=== PATIENT | female | born 1970 | race Caucasian/White ===

== ENCOUNTER 2016-06-10 16:16 | Emergency (ER) | payer OTHER ==
--- NOTE | 2016-06-10 17:04 | DIAGNOSTIC IMAGING REPORT ---
PROCEDURE: XR CHEST 1 VIEW INDICATION: CHEST PAIN TECHNIQUE: Portable AP view 04:44 p.m. COMPARISON: None. FINDINGS: Lungs are clear. Heart and mediastinum are normal. Thorax is normal. IMPRESSION: 1. Negative chest.
--- NOTE | 2016-06-10 18:19 | ED ORDER SUMMARY ---
..... Patient: KAMINI SUAREZ OrderSheet [facility] VisitID: [id number] [place] [address] 45y, F Registration Date/Time: 06/10/2016 ORDER SHEET Weight: 70.3 kg (stated) Allergies: Compazine GENERAL ORDERS: EKG - ER Stat (16:37 06/10/2016 SBalde R.N. per protocol) (Ack 16:47 LNations ER Tech1) (16:52 Libia R.N.) Chest 1V Urgent (16:38 06/10/2016 Melania CANTRELL) (Ack 16:48 LNations ER Tech1) (16:52 Libia R.N.) Alarm Security Or Surveillance Monitor (Continuous) (16:39 06/10/2016 Melania CANTRELL) (Ack 16:47 LNations ER Tech1) (16:51 Libia R.N.) CBC w Diff Urgent (16:39 06/10/2016 Melania CANTRELL) (Ack 16:47 LNations ER Tech1) (17:33 SBalde R.N.) CMP Urgent (16:39 06/10/2016 Melania CANTRELL) (Ack 16:47 LNations ER Tech1) (17:33 SBalde R.N.) UA-Culture if indicated Urgent (16:39 06/10/2016 Melania CANTRELL) (Ack 16:47 LNations ER Tech1) PT with INR Urgent (16:39 06/10/2016 Melania CANTRELL) (Ack 16:47 LNations ER Tech1) (17:33 SBalde R.N.) PTT Urgent (16:39 06/10/2016 Melania CANTRELL) (Ack 16:47 LNations ER Tech1) (17:33 SBalde R.N.) D-Dimer Urgent (16:39 06/10/2016 Melania CANTRELL) (Ack 16:47 LNations ER Tech1) (17:33 SBalde R.N.) Amylase Urgent (16:39 06/10/2016 Melania CANTRELL) (Ack 16:48 LNations ER Tech1) (17:33 SBalde R.N.) Lipase Urgent (16:39 06/10/2016 Melania CANTRELL) (Ack 16:48 LNations ER Tech1) (17:33 SBalde R.N.) CPK Urgent (16:39 06/10/2016 Melania CANTRELL) (Ack 16:48 LNations ER Tech1) (17:33 SBalde R.N.) Troponin-I Urgent (16:39 06/10/2016 Melania CANTRELL) (Ack 16:48 LNations ER Tech1) (17:34 SBalde R.N.) Urine Urgent (16:39 06/10/2016 Melania CANTRELL) (Ack 16:48 LNations ER Tech1) BNP Urgent (16:39 06/10/2016 Melania CANTRELL) (Ack 16:48 LNations ER Tech1) (17:34 SBalde R.N.) Oxygen (2 L/min) (NC) (16:39 06/10/2016 Melania CANTRELL) (Ack 16:47 LNations ER Tech1) Pulse oximeter (16:39 06/10/2016 Melania CANTRELL) (Ack 16:47 LNations ER Tech1) (16:51 Libia R.N.) EKG - ER Stat (16:39 06/10/2016 Melania CANTRELL) (Ack 16:47 LNations ER Tech1) (17:33 SBalde R.N.) MEDICATION ORDERS: Aspirin PO 325 mg (NOW) (16:39 06/10/2016 Melania CANTRELL) (Ack 16:51 Libia R.N.) (16:55 Libia R.N.) IV FLUIDS: IV Saline Lock (16:39 06/10/2016 Melania CANTRELL) (17:34 Jewel R.N.) ORDER SHEET NOTES: [Electronically signed by Nimo Perales R.N. (18:48 06/10/2016)] [Electronically signed by Sedrick Sheppard MD (19:21 06/10/2016)] [Electronically locked/signed by Nimo Perales R.N. (18:48 06/10/2016)]
--- NOTE | 2016-06-10 18:19 | ED ORDER SUMMARY ---
..... Patient: KAMINI SUAREZ OrderSheet [facility] VisitID: [id number] [place] [address] 45y, F Registration Date/Time: 06/10/2016 ORDER SHEET Weight: 70.3 kg (stated) Allergies: Compazine GENERAL ORDERS: EKG - ER Stat (16:37 06/10/2016 SBalde R.N. per protocol) (Ack 16:47 LNations ER Tech1) (16:52 Libia R.N.) Chest 1V Urgent (16:38 06/10/2016 Melania CANTRELL) (Ack 16:48 LNations ER Tech1) (16:52 Libia R.N.) Patient Scheduler (Continuous) (16:39 06/10/2016 Melania CANTRELL) (Ack 16:47 LNations ER Tech1) (16:51 Libia R.N.) CBC w Diff Urgent (16:39 06/10/2016 Melania CANTRELL) (Ack 16:47 LNations ER Tech1) (17:33 SBalde R.N.) CMP Urgent (16:39 06/10/2016 Melania CANTRELL) (Ack 16:47 LNations ER Tech1) (17:33 SBalde R.N.) UA-Culture if indicated Urgent (16:39 06/10/2016 Melania CANTRELL) (Ack 16:47 LNations ER Tech1) PT with INR Urgent (16:39 06/10/2016 Melania CANTRELL) (Ack 16:47 LNations ER Tech1) (17:33 SBalde R.N.) PTT Urgent (16:39 06/10/2016 Melania CANTRELL) (Ack 16:47 LNations ER Tech1) (17:33 SBalde R.N.) D-Dimer Urgent (16:39 06/10/2016 Melania CANTRELL) (Ack 16:47 LNations ER Tech1) (17:33 SBalde R.N.) Amylase Urgent (16:39 06/10/2016 Melania CANTRELL) (Ack 16:48 LNations ER Tech1) (17:33 SBalde R.N.) Lipase Urgent (16:39 06/10/2016 Melania CANTRELL) (Ack 16:48 LNations ER Tech1) (17:33 SBalde R.N.) CPK Urgent (16:39 06/10/2016 Melania CANTRELL) (Ack 16:48 LNations ER Tech1) (17:33 SBalde R.N.) Troponin-I Urgent (16:39 06/10/2016 Melania CANTRELL) (Ack 16:48 LNations ER Tech1) (17:34 SBalde R.N.) Urine Urgent (16:39 06/10/2016 Melania CANTRELL) (Ack 16:48 LNations ER Tech1) BNP Urgent (16:39 06/10/2016 Melania CANTRELL) (Ack 16:48 LNations ER Tech1) (17:34 SBalde R.N.) Oxygen (2 L/min) (NC) (16:39 06/10/2016 Melania CANTRELL) (Ack 16:47 LNations ER Tech1) Pulse oximeter (16:39 06/10/2016 Melania CANTRELL) (Ack 16:47 LNations ER Tech1) (16:51 Libia R.N.) EKG - ER Stat (16:39 06/10/2016 Melania CANTRELL) (Ack 16:47 LNations ER Tech1) (17:33 SBalde R.N.) MEDICATION ORDERS: Aspirin PO 325 mg (NOW) (16:39 06/10/2016 Melania CANTRELL) (Ack 16:51 Libia R.N.) (16:55 Libia R.N.) IV FLUIDS: IV Saline Lock (16:39 06/10/2016 Melania CANTRELL) (17:34 Jewel R.N.) ORDER SHEET NOTES: [Electronically signed by Nimo Perales R.N. (18:48 06/10/2016)] [Electronically signed by Sedrick Sheppard MD (19:21 06/10/2016)] [Electronically locked/signed by Nimo Perales R.N. (18:48 06/10/2016)]
--- NOTE | 2016-06-10 18:19 | ED NURSING NOTES ---
Clinical Report - Nurses [facility] [address] [place] [address] 06/10/2016 16:18 [id number] Triage time 16:23. Acuity: LEVEL 4. Chief Complaint: CHEST PAIN. Alert. KRISTEN COMA SCORE: Leblanc Coma Scale: 15- eyes open spontaneously (4); best verbal response- oriented x 4 (5); best motor response- obeys commands (6). --16:32 Rabia Carrillo R.N. 16:23 06/10/16. BP: 122/82. HR: 109. RR: 18. O2 saturation: 99% on room air. Temp: 98.1 F (oral). Pain level now: 8/10. --16:32 Rabia Carrillo R.N. Weight: 70.3 kg stated. Height/Length: 63 inches Per Patient. BMI: 27.5. --16:30 Rabia Carrillo R.N. Medications Orencia Subcutaneous. --16:27 Rabia Carrillo R.N. PredniSONE Oral 5 mg, daily. --16:27 Rabia Carrillo R.N. Amitriptyline HCl Oral 25 mg. --16:27 Rabia Carrillo R.N. Medication/allergy information source: the patient. --16:32 Rabia Carrillo R.N. Allergies Compazine. --16:28 Rabia Carrillo R.N. History Arrived by private vehicle. Historian: patient. Accompanied by family. Primary physician ([facility]). Onset. (about 3 days). Describes the quality as (constant "jade"). Relates location as in the right and left chest area. Notes pain level as 8/10 on arrival. Provoking / relieving factors: worsened by movement, cough and deep breaths. ( lower bilateral lower "ribs"). The patient has had a cough. SOCIAL HX: Heavy tobacco smoker- less than 1 pack per day. No alcohol use or drug use. FALL RISK ASSESSMENT: Fall risk assessment completed. No fall risk identified. FUNCTIONAL ASSESSMENT: Functional assessment: no impairments noted. LEARNING NEEDS ASSESSMENT: The learning needs assessment revealed no barriers. --16:32 Rabia Carrillo R.N. PROBLEMS: Fibromyalgia. Arthritis. --16:29 Rabia Carrillo R.N. ADDITIONAL SURGERIES: Hysterectomy. Oophorectomy. --16:29 Rabia Carrillo R.N. Assessment GENERAL / NEURO / PSYCH: The patient is awake and alert, is oriented and cooperative and appears uncomfortable. She has good eye contact. RESPIRATORY: Respirations not labored. SKIN: Skin is warm and dry. --16:32 Rabia Carrillo R.N. Interventions ID band on patient. To treatment room. --16:32 Rabia Carrillo R.N. PHYSICAL ASSESSMENT 16:38 06/10/16. Ambulatory to room. Patient gowned. GENERAL / NEURO / PSYCH: The patient is awake and alert, is oriented and cooperative and appears uncomfortable. She has good eye contact. RESPIRATORY: Respirations not labored. SKIN: Skin is warm and dry. --16:38 Rabia Carrillo R.N. NURSING PROGRESS NOTES 16:38 06/10/16. Patient gowned. Call light placed in reach. Side rails up x 1. Bed placed in lowest position. Brakes of bed on. --16:38 Rabia Carrillo R.N. 16:55 06/10/2016 Aspirin PO Tablets 325 mg given. Allergies verified and confirmed 5 rights. --16:55 Rabia Carrillo R.N. 16:55 06/10/16. shelter monitor, pulse oximeter and NIBP monitor placed on patient. Head of bed elevated. --16:55 Rabia Carrillo R.N. Portable chest x-ray. --16:55 Rabia Carrillo R.N. 17:06 06/10/2016 One (1) unsuccessful IV access attempt. --17:06 Rabia Carrillo R.N. EKG time: (16:50). EKG was performed by a tech and shown to the ED physician. --17:13 Neo Mcghee 17:24 06/10/2016 Site #1 started via IV in the right antecubital space with an 20g angiocath; one attempt. Blood drawn: rainbow set. Labeled in the presence of the patient. Saline lock flushed with 10 mL saline. --17:26 Nimo Perales R.N. Call light placed in reach. Side rails up x 2. Bed placed in lowest position. Brakes of bed on. --17:26 Nimo Perales R.N. 18:34 06/10/2016 Site #1 removed upon discharge. Bandage applied. --18:34 Nimo Perales R.N. DISPOSITION / DISCHARGE Departure time: 18:34 Jun 10 2016. Condition at departure: improved and stable. No learning barriers present. Reviewed medication(s). Work note given. Patient verbalized understanding. Written instructions provided in Welsh. The patient was discharged by the physician. She was discharged home and accompanied by family. She left the Emergency Department ambulatory and via private vehicle. Family member driving. --18:35 Nimo Perales R.N. 18:36 06/10/16. BP: 101/65. HR: 90. RR: 18. O2 saturation: 97%. Pain level now 6/10. --18:37 Nimo Perales R.N. Locked/Released at 06/10/2016 18:48 by Nimo Perales R.N.
--- NOTE | 2016-06-10 18:19 | ED NURSING NOTES ---
Clinical Report - Nurses [facility] [address] [place] [address] 06/10/2016 16:18 [id number] TRI[facility] Triage time 16:23. Acuity: LEVEL 4. Chief Complaint: CHEST PAIN. Alert. KRISTEN COMA SCORE: Hoyt Coma Scale: 15- eyes open spontaneously (4); best verbal response- oriented x 4 (5); best motor response- obeys commands (6). --16:32 Rabia Carrillo R.N. 16:23 06/10/16. BP: 122/82. HR: 109. RR: 18. O2 saturation: 99% on room air. Temp: 98.1 F (oral). Pain level now: 8/10. --16:32 Rabia Carrillo R.N. Weight: 70.3 kg stated. Height/Length: 63 inches Per Patient. BMI: 27.5. --16:30 Rabia Carrillo R.N. Medications Orencia Subcutaneous. --16:27 Rabia Carrillo R.N. PredniSONE Oral 5 mg, daily. --16:27 Rabia Carrillo R.N. Amitriptyline HCl Oral 25 mg. --16:27 Rabia Carrillo R.N. Medication/allergy information source: the patient. --16:32 Rabia Carrillo R.N. Allergies Compazine. --16:28 Rabia Carrillo R.N. History Arrived by private vehicle. Historian: patient. Accompanied by family. Primary physician ([facility]). Onset. (about 3 days). Describes the quality as (constant "jade"). Relates location as in the right and left chest area. Notes pain level as 8/10 on arrival. Provoking / relieving factors: worsened by movement, cough and deep breaths. ( lower bilateral lower "ribs"). The patient has had a cough. SOCIAL HX: Heavy tobacco smoker- less than 1 pack per day. No alcohol use or drug use. FALL RISK ASSESSMENT: Fall risk assessment completed. No fall risk identified. FUNCTIONAL ASSESSMENT: Functional assessment: no impairments noted. LEARNING NEEDS ASSESSMENT: The learning needs assessment revealed no barriers. --16:32 Rabia Carrillo R.N. PROBLEMS: Fibromyalgia. Arthritis. --16:29 Rabia Carrillo R.N. ADDITIONAL SURGERIES: Hysterectomy. Oophorectomy. --16:29 Rabia Carrillo R.N. Assessment GENERAL / NEURO / PSYCH: The patient is awake and alert, is oriented and cooperative and appears uncomfortable. She has good eye contact. RESPIRATORY: Respirations not labored. SKIN: Skin is warm and dry. --16:32 Rabia Carrillo R.N. Interventions ID band on patient. To treatment room. --16:32 Rabia Carrillo R.N. PHYSICAL ASSESSMENT 16:38 06/10/16. Ambulatory to room. Patient gowned. GENERAL / NEURO / PSYCH: The patient is awake and alert, is oriented and cooperative and appears uncomfortable. She has good eye contact. RESPIRATORY: Respirations not labored. SKIN: Skin is warm and dry. --16:38 Rabia Carrillo R.N. NURSING PROGRESS NOTES 16:38 06/10/16. Patient gowned. Call light placed in reach. Side rails up x 1. Bed placed in lowest position. Brakes of bed on. --16:38 Rabia Carrillo R.N. 16:55 06/10/2016 Aspirin PO Tablets 325 mg given. Allergies verified and confirmed 5 rights. --16:55 Rabia Carrillo R.N. 16:55 06/10/16. school bus monitor, pulse oximeter and NIBP monitor placed on patient. Head of bed elevated. --16:55 Rabia Carrillo R.N. Portable chest x-ray. --16:55 Rabia Carrillo R.N. 17:06 06/10/2016 One (1) unsuccessful IV access attempt. --17:06 Rabia Carrillo R.N. EKG time: (16:50). EKG was performed by a tech and shown to the ED physician. --17:13 Neo Mcghee 17:24 06/10/2016 Site #1 started via IV in the right antecubital space with an 20g angiocath; one attempt. Blood drawn: rainbow set. Labeled in the presence of the patient. Saline lock flushed with 10 mL saline. --17:26 Nimo Perales R.N. Call light placed in reach. Side rails up x 2. Bed placed in lowest position. Brakes of bed on. --17:26 Nimo Perales R.N. 18:34 06/10/2016 Site #1 removed upon discharge. Bandage applied. --18:34 Nimo Perales R.N. DISPOSITION / DISCHARGE Departure time: 18:34 Jun 10 2016. Condition at departure: improved and stable. No learning barriers present. Reviewed medication(s). Work note given. Patient verbalized understanding. Written instructions provided in Faroese. The patient was discharged by the physician. She was discharged home and accompanied by family. She left the Emergency Department ambulatory and via private vehicle. Family member driving. --18:35 Nimo Perales R.N. 18:36 06/10/16. BP: 101/65. HR: 90. RR: 18. O2 saturation: 97%. Pain level now 6/10. --18:37 Nimo Perales R.N. Locked/Released at 06/10/2016 18:48 by Nimo Perales R.N.
--- NOTE | 2016-06-10 18:19 | ED CLINICAL REPORT ---
Clinical Report - Physicians/Mid Levels [facility] [address] [place] [address] 06/10/2016 16:18 Patient: KAMINI SUAREZ Time Seen: 16:38. Arrived- By private vehicle. Historian- patient. HISTORY OF PRESENT ILLNESS Chief Complaint: CHEST PAIN. At its maximum, severity described as moderate. When seen in the E.D., severity described as moderate. It is described as tightness and it is described as located in the RUQ of the abdomen and left upper quadrant of the abdomen. This started several days ago and is still present. It was gradual in onset and has been waxing/waning. No nausea, vomiting, difficulty breathing or diaphoresis. The patient has had additional moderate, central, burning chest pain. It has been exacerbated by movement, exertion and cough. Similar symptoms previously: REVIEW OF SYSTEMS All systems otherwise negative, except as recorded above. PAST HISTORY PCP - Jey. Problems: Fibromyalgia. Arthritis. Additional Surgeries: Hysterectomy. Oophorectomy. Medications: Amitriptyline HCl Oral 25 mg. PredniSONE Oral 5 mg, daily. Orencia Subcutaneous. Allergies: Compazine. SOCIAL HISTORY Current every day light tobacco smoker (cigarette)- less than 1/2 a pack per day. No alcohol use or drug use. FAMILY HISTORY Stroke in first-degree relative (father); cancer in grandparent. ADDITIONAL NOTES The nursing notes have been reviewed. PHYSICAL EXAM Vital Signs: 06/10/2016 16:23 BP: 122/82. HR: 109. RR: 18. O2 saturation: 99%. Temp: 98.1 F. Pain level now: 8/10. Have been reviewed. Appearance: Alert. Eyes: Pupils equal, round and reactive to light. ENT: Ears normal. Pharynx normal. Neck: Normal inspection. Neck supple. No JVD or carotid bruit. CVS: Normal heart rate and rhythm. Heart sounds normal. Respiratory: No respiratory distress. Chest pain reproducible with palpation of the costochondral junction, with movement of the trunk and with deep breathing. Breath sounds normal. Abdomen: Soft and nontender. Bowel sounds normal. No organomegaly. No mass. Back: Normal external inspection. No CVA tenderness. Skin: Skin warm and dry. Normal skin color. Normal skin turgor. Extremities: Extremities exhibit normal ROM. No calf tenderness. No lower extremity edema. LABS, X-RAYS, AND EKG EKG: Normal EKG. Rate: 96. Prior EKG unavailable. The study has been independently viewed by me. Chest X-ray: No acute disease. The X-rays were interpreted by the radiologist and contemporaneously by me. Laboratory Tests: CBC w Diff: (JESSICA: 06/10/2016 17:15) ( MsgRcvd 06/10/2016 17:34) Final results Test Result Flag Units (Reference) WHITE BLOOD COUNT 11.1 K/uL (4.5-11.5) RED BLOOD COUNT 4.90 M/uL (4.00-5.20) HEMOGLOBIN 13.5 gm/dL (12.0-16.0) HEMATOCRIT 41.7 % (36.0-46.0) MEAN CELL VOLUME 85 fL (80-100) MEAN CORPUSCULAR HGB 28 pg (26-34) MEAN CORPUSCULAR HGB CONC 33 g/dL (31-37) RED CELL DISTRIBUTION WIDTH 14.1 % (11.6-14.8) PLATELET COUNT 422 H K/uL (150-400) NEUTROPHIL % 72.2 % (50-75) LYMPH % 22.1 L % (25-40) MONO % 4.6 % (3-14) EOSINOPHIL % 0.7 % (0-4) BASOPHIL % 0.4 % (0-2) PT with INR: (JESSICA: 06/10/2016 17:15) ( MsgRcvd 06/10/2016 17:51) Final results Test Result Flag Units (Reference) INR 0.9 (0.8-1.2) Low Intensity Therapy: INR 1.5-2.0 PT range 18.5-23.1Mod.Intensity Therapy: INR 2.0-3.0 PT range 23.1-31.5High Intensity Therapy: INR 2.5-3.5 PT range 27.4-35.5High Intensity Therapy 2: INR 3.0-4.0 PT range 31.5-39.3 APTT 29 SECONDS (24-34) D-DIMER QUANTITATIVE < 0.27 L ug/mLFEU (0.27-0.52) The primary value of this quantitative assay relates toits negative predictive value (i.e. exclusion) of pulmonaryembolism/deep vein thrombosis/DIC.Elevated levels of d-dimer may also occur with:, age, cancer, inflammation, liver disease,post-op, infection, hematoma, coronary disease, peripheralarteriopathy, bleeding disorders and thrombolytic treatment.Results should be correlated with other clinical andradiological data.Testing Methodology: Latex Immunoassay BNP: (JESSICA: 06/10/2016 17:15) ( MsgRcvd 06/10/2016 17:58) Final results Test Result Flag Units (Reference) B-TYPE NATRIURETIC PEPTIDE < 5.0 L pg/ml (5-100) CMP: (JESSICA: 06/10/2016 17:15) ( MsgRcvd 06/10/2016 17:54) Final results Test Result Flag Units (Reference) GLUCOSE 147 H mg/dL (70-110) BUN 9 mg/dL (7-18) CREATININE 0.8 mg/dL (0.6-1.3) Estimated GFR >60 mL/min Estimated GFR- >60 mL/min Note: Persistent reduction over 3 months in eGFR<60 mL/min/1.73 m2 defines CKD. Patients with eGFR values>=60 mL/min/1.73 m2 may also have CKD if evidence ofpersistent proteinuria. Additional information may be foundat www.kidney.org. SODIUM 146 H mmol/L (136-145) POTASSIUM 3.6 mmol/L (3.5-5.1) CHLORIDE 108 H mmol/L (98-107) CARBON DIOXIDE 26 mmol/L (21-32) CALCIUM 8.7 mg/dL (8.5-10.1) TOTAL PROTEIN 7.5 g/dL (6.4-8.2) ALBUMIN 3.7 g/dL (3.3-5.0) BILIRUBIN, TOTAL 0.4 mg/dL (0.0-1.0) ALKALINE PHOSPHATASE 90 U/L (46-116) AST (SGOT) 18 U/L (15-37) ALT (SGPT) 33 U/L (12-78) LIPASE 223 U/L (73-393) AMYLASE 30 U/L (25-115) CPK 54 U/L (24-260) TROPONIN I <0.05 L ng/mL (0.00-1.5) TROPONIN REFERENCE RANGE:<0.1 NEGATIVE0.1-1.5 INDETERMINANT>1.5 POSITIVE . PROGRESS AND PROCEDURES Course of Care: Patient is stable. Patient/family counseled. Old medical records reviewed. Disposition: Discharged. Condition: stable. CLINICAL IMPRESSION Chest wall pain INSTRUCTIONS No driving or operating machinery while taking medication. Warnings: Further evaluation is necessary. GENERAL WARNINGS: Return or contact your physician immediately if your condition worsens or changes unexpectedly, if not improving as expected, or if other problems arise. Your Current Medications: CONTINUE TAKING THE FOLLOWING MEDICATIONS: Amitriptyline HCl Oral : 25 mg. Orencia Subcutaneous. PredniSONE Oral : 5 mg daily. Prescription Medications: Ultram 50 mg: take 1-2 orally every 6 hours as needed for pain. Dispense fifteen (15). No refills. Substitution is permissible. OTC Medications: Motrin (available over the counter): take according to label instructions. Understanding of the discharge instructions verbalized by patient. Follow-up with: [facility], , , [address], [place] [address] Follow up tomorrow. Call for an appointment. (Electronically signed by Sedrick Sheppard MD 06/10/2016 19:21)
--- NOTE | 2016-06-10 19:21 | ED DISCHARGE INSTRUCTIONS ---
Patient: KAMINI SUAREZ General Instructions [facility] VisitID: [id number] [place] [address] 45y, F Registration Date/Time: 06/10/2016 Chest wall pain INSTRUCTIONS No driving or operating machinery while taking medication. Warnings: Further evaluation is necessary. GENERAL WARNINGS: Return or contact your physician immediately if your condition worsens or changes unexpectedly, if not improving as expected, or if other problems arise. Your Current Medications: CONTINUE TAKING THE FOLLOWING MEDICATIONS: Amitriptyline HCl Oral : 25 mg. Orencia Subcutaneous. PredniSONE Oral : 5 mg daily. Prescription Medications: Ultram 50 mg: take 1-2 orally every 6 hours as needed for pain. Dispense fifteen (15). No refills. Substitution is permissible. OTC Medications: Motrin (available over the counter): take according to label instructions. Understanding of the discharge instructions verbalized by patient. Follow-up with: [facility], , , [address] [place] [address], [place] [id number] Follow up tomorrow. Call for an appointment. ADDITIONAL INFORMATION Chest Wall Pain: Costochondritis The chest pain that you have had today is caused by Costochondritis. This condition is due to an inflammation of the cartilage joining the ribs to the breastbone. It is not caused by heart or lung problems. Although the exact cause for costochondritis is not known, it often occurs during times of emotional stress. It can be painful, but it is not dangerous. It usually disappears within one to two weeks, but may recur. Rarely, a more serious condition may cause symptoms similar to costochondritis; therefore, watch for the warning signs listed below. Home Care: If you feel that emotional stress is a cause of your condition, try to identify sources of that stress. It may not be obvious! Learn ways to deal with the stress in your life such as regular exercise, muscle relaxation, meditation, or simply taking time out for yourself. For more information about this, consult your doctor or go to a local bookstore and review books and tapes available on the subject of stress reduction. You may use acetaminophen (Tylenol) or ibuprofen (Motrin, Advil) to control pain, unless another pain medicine was prescribed. [ NOTE: If you have liver disease or ever had a stomach ulcer, talk with your doctor before using these medicines.] The use of heat (hot wet compress or heating pad) with or without local analgesic creams (Deep Heat Rub, Noe Monzon) will be helpful to reduce pain. Follow Up with your doctor as directed or sooner if you do not start to improve within the next two days. Get Prompt Medical Attention if any of the following occur: A change in the type of pain: if it feels different, becomes more severe, lasts longer, or spreads into your shoulder, arm, neck, jaw or back Shortness of breath or increased pain with breathing Weakness, dizziness, or fainting Cough with dark colored sputum (phlegm) or blood Abdominal pain Dark red or black stools Fever of 100.4F (38C) or higher, or as directed by your healthcare provider Tramadol Hydrochloride Oral tablet What is this medicine? TRAMADOL (TRA ma dole) is a pain reliever. It is used to treat moderate to severe pain in adults. How should I use this medicine? Take this medicine by mouth with a full glass of water. Follow the directions on the prescription label. If the medicine upsets your stomach, take it with food or milk. Do not take more medicine than you are told to take. Talk to your tube bender hand regarding the use of this medicine in children. Special care may be needed. What side effects may I notice from receiving this medicine? Side effects that you should report to your doctor or health patient care secretary as soon as possible: allergic reactions like skin rash, itching or hives, swelling of the face, lips, or tongue breathing difficulties, wheezing confusion itching light headedness or fainting spells redness, blistering, peeling or loosening of the skin, including inside the mouth seizures Side effects that usually do not require medical attention (report to your doctor or health patient care secretary if they continue or are bothersome): constipation dizziness drowsiness headache nausea, vomiting What may interact with this medicine? Do not take this medicine with any of the following medications: MAOIs like Carbex, Eldepryl, Marplan, Nardil, and Parnate This medicine may also interact with the following medications: alcohol or medicines that contain alcohol antihistamines benzodiazepines bupropion carbamazepine or oxcarbazepine clozapine cyclobenzaprine digoxin furazolidone linezolid medicines for depression, anxiety, or psychotic disturbances medicines for migraine headache like almotriptan, eletriptan, frovatriptan, naratriptan, rizatriptan, sumatriptan, zolmitriptan medicines for pain like pentazocine, buprenorphine, butorphanol, meperidine, nalbuphine, and propoxyphene medicines for sleep muscle relaxants naltrexone phenobarbital phenothiazines like perphenazine, thioridazine, chlorpromazine, mesoridazine, fluphenazine, prochlorperazine, promazine, and trifluoperazine procarbazine warfarin What if I miss a dose? If you miss a dose, take it as soon as you can. If it is almost time for your next dose, take only that dose. Do not take double or extra doses. Where should I keep my medicine? Keep out of the reach of children. Store at room temperature between 15 and 30 degrees C (59 and 86 degrees F). Keep container tightly closed. Throw away any unused medicine after the expiration date. What should I tell my health care provider before I take this medicine? They need to know if you have any of these conditions: brain tumor depression drug abuse or addiction head injury if you frequently drink alcohol containing drinks kidney disease or trouble passing urine liver disease lung disease, asthma, or breathing problems seizures or epilepsy suicidal thoughts, plans, or attempt; a previous suicide attempt by you or a family member an unusual or allergic reaction to tramadol, codeine, other medicines, foods, dyes, or preservatives or trying to get breast-feeding What should I watch for while using this medicine? Tell your doctor or health patient care secretary if your pain does not go away, if it gets worse, or if you have new or a different type of pain. You may develop tolerance to the medicine. Tolerance means that you will need a higher dose of the medicine for pain relief. Tolerance is normal and is expected if you take this medicine for a long time. Do not suddenly stop taking your medicine because you may develop a severe reaction. Your body becomes used to the medicine. This does NOT mean you are addicted. Addiction is a behavior related to getting and using a drug for a non-medical reason. If you have pain, you have a medical reason to take pain medicine. Your doctor will tell you how much medicine to take. If your doctor wants you to stop the medicine, the dose will be slowly lowered over time to avoid any side effects. You may get drowsy or dizzy. Do not drive, use machinery, or do anything that needs mental alertness until you know how this medicine affects you. Do not stand or sit up quickly, especially if you are an older patient. This reduces the risk of dizzy or fainting spells. Alcohol can increase or decrease the effects of this medicine. Avoid alcoholic drinks. You may have constipation. Try to have a bowel movement at least every 2 to 3 days. If you do not have a bowel movement for 3 days, call your doctor or health patient care secretary. Your mouth may get dry. Chewing sugarless gum or sucking hard candy, and drinking plenty of water may help. Contact your doctor if the problem does not go away or is severe. Ibuprofen Oral tablet What is this medicine? IBUPROFEN (eye BYOO proe fen) is a non-steroidal anti-inflammatory drug (NSAID). It is used for dental pain, fever, headaches or migraines, osteoarthritis, rheumatoid arthritis, or painful monthly periods. It can also relieve minor aches and pains caused by a cold, flu, or sore throat. How should I use this medicine? Take this medicine by mouth with a glass of water. Follow the directions on the prescription label. Take this medicine with food if your stomach gets upset. Try to not lie down for at least 10 minutes after you take the medicine. Take your medicine at regular intervals. Do not take your medicine more often than directed. A special MedGuide will be given to you by the pharmacist with each prescription and refill. Be sure to read this information carefully each time. Talk to your tube bender hand regarding the use of this medicine in children. Special care may be needed. What side effects may I notice from receiving this medicine? Side effects that you should report to your doctor or health patient care secretary as soon as possible: allergic reactions like skin rash, itching or hives, swelling of the face, lips, or tongue black or bloody stools, blood in the urine or in vomit breathing problems changes in vision chest pain general ill feeling or flu-like symptoms nausea or vomiting redness, blistering, peeling or loosening of the skin, including inside the mouth slurred speech or weakness on one side of the body stomach pain unexplained weight gain or swelling unusually weak or tired yellowing of eyes or skin Side effects that usually do not require medical attention (report to your doctor or health patient care secretary if they continue or are bothersome): constipation or diarrhea dizziness gas or heartburn stomach upset What may interact with this medicine? Do not take this medicine with any of the following medications: cidofovir ketorolac methotrexate pemetrexed This medicine may also interact with the following medications: alcohol aspirin diuretics lithium other drugs for inflammation like prednisone warfarin What if I miss a dose? If you miss a dose, take it as soon as you can. If it is almost time for your next dose, take only that dose. Do not take double or extra doses. Where should I keep my medicine? Keep out of the reach of children. Store at room temperature between 15 and 30 degrees C (59 and 86 degrees F). Keep container tightly closed. Throw away any unused medicine after the expiration date. What should I tell my health care provider before I take this medicine? They need to know if you have any of these conditions: asthma cigarette smoker drink more than 3 alcohol containing drinks a day heart disease or circulation problems such as heart failure or leg edema (fluid retention) high blood pressure kidney disease liver disease stomach bleeding or ulcers an unusual or allergic reaction to ibuprofen, aspirin, other NSAIDS, other medicines, foods, dyes, or preservatives or trying to get breast-feeding What should I watch for while using this medicine? Tell your doctor or healthcare professional if your symptoms do not start to get better or if they get worse. This medicine does not prevent heart attack or stroke. In fact, this medicine may increase the chance of a heart attack or stroke. The chance may increase with longer use of this medicine and in people who have heart disease. If you take aspirin to prevent heart attack or stroke, talk with your doctor or health patient care secretary. Do not take other medicines that contain aspirin, ibuprofen, or naproxen with this medicine. Side effects such as stomach upset, nausea, or ulcers may be more likely to occur. Many medicines available without a prescription should not be taken with this medicine. This medicine can cause ulcers and bleeding in the stomach and intestines at any time during treatment. Ulcers and bleeding can happen without warning symptoms and can cause . To reduce your risk, do not smoke cigarettes or drink alcohol while you are taking this medicine. You may get drowsy or dizzy. Do not drive, use machinery, or do anything that needs mental alertness until you know how this medicine affects you. Do not stand or sit up quickly, especially if you are an older patient. This reduces the risk of dizzy or fainting spells. This medicine can cause you to bleed more easily. Try to avoid damage to your teeth and gums when you brush or floss your teeth. You have been given the following additional information: Chest Wall Pain, Costochondritis Tramadol Hydrochloride Oral tablet Ibuprofen Oral tablet No driving or operating machinery while taking medication. (Electronically signed by Sedrick Sheppard MD 06/10/2016 19:21)
--- NOTE | 2016-06-10 19:21 | ED MAR SUMMARY ---
..... Medication Administration Record [facility] [address] [place] [address] Patient: KAMINI SUAREZ Visit ID: [id number] 45y, F Weight: 70.3 kg Height/Length: 63 in BMI: 27.5 ALLERGIES: Compazine Given 16:55 06/10/2016 Rabia Carrillo R.N. Medication Administered: ASPIRIN [PO], Dose: 325 mg Tablets PO. Medication Ordered: Aspirin PO 325 mg (NOW).
--- NOTE | 2016-06-10 19:21 | ED MED RECONCILIATION SUMMARY ---
Patient: KAMINI SUAREZ Medication Reconciliation Report [facility] VisitID: [id number] [address] [place] [address] 45y, F Registration Date/Time: 06/10/2016 Weight: 70.3 kg Height/Length: 63 in. BMI: 27.5 ALLERGIES: Compazine The patient's Home Medications are listed below: CONTINUE TAKING THE FOLLOWING MEDICATIONS: Amitriptyline HCl Oral 25 mg Orencia Subcutaneous PredniSONE Oral 5 mg, daily The source(s) of the original Home Medication information: patient The following Medications were given to the patient in the Emergency Department: Aspirin [PO] PO 325 mg, administered: 06/10/2016 4:55:00 PM The following Medications were prescribed to the patient: Motrin (available over the counter): take according to label instructions. -- Sedrick Sheppard MD Ultram 50 mg: take 1-2 orally every 6 hours as needed for pain. Dispense fifteen (15). No refills. Substitution is permissible. -- Sedrick Sheppard MD
--- NOTE | 2016-06-10 19:21 | ED DISCHARGE INSTRUCTIONS ---
Patient: KAMINI SUAREZ General Instructions [facility] VisitID: [id number] [place] [address] 45y, F Registration Date/Time: 06/10/2016 Chest wall pain INSTRUCTIONS No driving or operating machinery while taking medication. Warnings: Further evaluation is necessary. GENERAL WARNINGS: Return or contact your physician immediately if your condition worsens or changes unexpectedly, if not improving as expected, or if other problems arise. Your Current Medications: CONTINUE TAKING THE FOLLOWING MEDICATIONS: Amitriptyline HCl Oral : 25 mg. Orencia Subcutaneous. PredniSONE Oral : 5 mg daily. Prescription Medications: Ultram 50 mg: take 1-2 orally every 6 hours as needed for pain. Dispense fifteen (15). No refills. Substitution is permissible. OTC Medications: Motrin (available over the counter): take according to label instructions. Understanding of the discharge instructions verbalized by patient. Follow-up with: [facility], , , [address] [place] [address], [place] [address] Follow up tomorrow. Call for an appointment. ADDITIONAL INFORMATION Chest Wall Pain: Costochondritis The chest pain that you have had today is caused by Costochondritis. This condition is due to an inflammation of the cartilage joining the ribs to the breastbone. It is not caused by heart or lung problems. Although the exact cause for costochondritis is not known, it often occurs during times of emotional stress. It can be painful, but it is not dangerous. It usually disappears within one to two weeks, but may recur. Rarely, a more serious condition may cause symptoms similar to costochondritis; therefore, watch for the warning signs listed below. Home Care: If you feel that emotional stress is a cause of your condition, try to identify sources of that stress. It may not be obvious! Learn ways to deal with the stress in your life such as regular exercise, muscle relaxation, meditation, or simply taking time out for yourself. For more information about this, consult your doctor or go to a local bookstore and review books and tapes available on the subject of stress reduction. You may use acetaminophen (Tylenol) or ibuprofen (Motrin, Advil) to control pain, unless another pain medicine was prescribed. [ NOTE: If you have liver disease or ever had a stomach ulcer, talk with your doctor before using these medicines.] The use of heat (hot wet compress or heating pad) with or without local analgesic creams (Deep Heat Rub, Noe Monzon) will be helpful to reduce pain. Follow Up with your doctor as directed or sooner if you do not start to improve within the next two days. Get Prompt Medical Attention if any of the following occur: A change in the type of pain: if it feels different, becomes more severe, lasts longer, or spreads into your shoulder, arm, neck, jaw or back Shortness of breath or increased pain with breathing Weakness, dizziness, or fainting Cough with dark colored sputum (phlegm) or blood Abdominal pain Dark red or black stools Fever of 100.4F (38C) or higher, or as directed by your healthcare provider Tramadol Hydrochloride Oral tablet What is this medicine? TRAMADOL (TRA ma dole) is a pain reliever. It is used to treat moderate to severe pain in adults. How should I use this medicine? Take this medicine by mouth with a full glass of water. Follow the directions on the prescription label. If the medicine upsets your stomach, take it with food or milk. Do not take more medicine than you are told to take. Talk to your fixing machine operator regarding the use of this medicine in children. Special care may be needed. What side effects may I notice from receiving this medicine? Side effects that you should report to your doctor or health overnight caregiver as soon as possible: allergic reactions like skin rash, itching or hives, swelling of the face, lips, or tongue breathing difficulties, wheezing confusion itching light headedness or fainting spells redness, blistering, peeling or loosening of the skin, including inside the mouth seizures Side effects that usually do not require medical attention (report to your doctor or health overnight caregiver if they continue or are bothersome): constipation dizziness drowsiness headache nausea, vomiting What may interact with this medicine? Do not take this medicine with any of the following medications: MAOIs like Carbex, Eldepryl, Marplan, Nardil, and Parnate This medicine may also interact with the following medications: alcohol or medicines that contain alcohol antihistamines benzodiazepines bupropion carbamazepine or oxcarbazepine clozapine cyclobenzaprine digoxin furazolidone linezolid medicines for depression, anxiety, or psychotic disturbances medicines for migraine headache like almotriptan, eletriptan, frovatriptan, naratriptan, rizatriptan, sumatriptan, zolmitriptan medicines for pain like pentazocine, buprenorphine, butorphanol, meperidine, nalbuphine, and propoxyphene medicines for sleep muscle relaxants naltrexone phenobarbital phenothiazines like perphenazine, thioridazine, chlorpromazine, mesoridazine, fluphenazine, prochlorperazine, promazine, and trifluoperazine procarbazine warfarin What if I miss a dose? If you miss a dose, take it as soon as you can. If it is almost time for your next dose, take only that dose. Do not take double or extra doses. Where should I keep my medicine? Keep out of the reach of children. Store at room temperature between 15 and 30 degrees C (59 and 86 degrees F). Keep container tightly closed. Throw away any unused medicine after the expiration date. What should I tell my health care provider before I take this medicine? They need to know if you have any of these conditions: brain tumor depression drug abuse or addiction head injury if you frequently drink alcohol containing drinks kidney disease or trouble passing urine liver disease lung disease, asthma, or breathing problems seizures or epilepsy suicidal thoughts, plans, or attempt; a previous suicide attempt by you or a family member an unusual or allergic reaction to tramadol, codeine, other medicines, foods, dyes, or preservatives or trying to get breast-feeding What should I watch for while using this medicine? Tell your doctor or health overnight caregiver if your pain does not go away, if it gets worse, or if you have new or a different type of pain. You may develop tolerance to the medicine. Tolerance means that you will need a higher dose of the medicine for pain relief. Tolerance is normal and is expected if you take this medicine for a long time. Do not suddenly stop taking your medicine because you may develop a severe reaction. Your body becomes used to the medicine. This does NOT mean you are addicted. Addiction is a behavior related to getting and using a drug for a non-medical reason. If you have pain, you have a medical reason to take pain medicine. Your doctor will tell you how much medicine to take. If your doctor wants you to stop the medicine, the dose will be slowly lowered over time to avoid any side effects. You may get drowsy or dizzy. Do not drive, use machinery, or do anything that needs mental alertness until you know how this medicine affects you. Do not stand or sit up quickly, especially if you are an older patient. This reduces the risk of dizzy or fainting spells. Alcohol can increase or decrease the effects of this medicine. Avoid alcoholic drinks. You may have constipation. Try to have a bowel movement at least every 2 to 3 days. If you do not have a bowel movement for 3 days, call your doctor or health overnight caregiver. Your mouth may get dry. Chewing sugarless gum or sucking hard candy, and drinking plenty of water may help. Contact your doctor if the problem does not go away or is severe. Ibuprofen Oral tablet What is this medicine? IBUPROFEN (eye BYOO proe fen) is a non-steroidal anti-inflammatory drug (NSAID). It is used for dental pain, fever, headaches or migraines, osteoarthritis, rheumatoid arthritis, or painful monthly periods. It can also relieve minor aches and pains caused by a cold, flu, or sore throat. How should I use this medicine? Take this medicine by mouth with a glass of water. Follow the directions on the prescription label. Take this medicine with food if your stomach gets upset. Try to not lie down for at least 10 minutes after you take the medicine. Take your medicine at regular intervals. Do not take your medicine more often than directed. A special MedGuide will be given to you by the pharmacist with each prescription and refill. Be sure to read this information carefully each time. Talk to your fixing machine operator regarding the use of this medicine in children. Special care may be needed. What side effects may I notice from receiving this medicine? Side effects that you should report to your doctor or health overnight caregiver as soon as possible: allergic reactions like skin rash, itching or hives, swelling of the face, lips, or tongue black or bloody stools, blood in the urine or in vomit breathing problems changes in vision chest pain general ill feeling or flu-like symptoms nausea or vomiting redness, blistering, peeling or loosening of the skin, including inside the mouth slurred speech or weakness on one side of the body stomach pain unexplained weight gain or swelling unusually weak or tired yellowing of eyes or skin Side effects that usually do not require medical attention (report to your doctor or health overnight caregiver if they continue or are bothersome): constipation or diarrhea dizziness gas or heartburn stomach upset What may interact with this medicine? Do not take this medicine with any of the following medications: cidofovir ketorolac methotrexate pemetrexed This medicine may also interact with the following medications: alcohol aspirin diuretics lithium other drugs for inflammation like prednisone warfarin What if I miss a dose? If you miss a dose, take it as soon as you can. If it is almost time for your next dose, take only that dose. Do not take double or extra doses. Where should I keep my medicine? Keep out of the reach of children. Store at room temperature between 15 and 30 degrees C (59 and 86 degrees F). Keep container tightly closed. Throw away any unused medicine after the expiration date. What should I tell my health care provider before I take this medicine? They need to know if you have any of these conditions: asthma cigarette smoker drink more than 3 alcohol containing drinks a day heart disease or circulation problems such as heart failure or leg edema (fluid retention) high blood pressure kidney disease liver disease stomach bleeding or ulcers an unusual or allergic reaction to ibuprofen, aspirin, other NSAIDS, other medicines, foods, dyes, or preservatives or trying to get breast-feeding What should I watch for while using this medicine? Tell your doctor or healthcare professional if your symptoms do not start to get better or if they get worse. This medicine does not prevent heart attack or stroke. In fact, this medicine may increase the chance of a heart attack or stroke. The chance may increase with longer use of this medicine and in people who have heart disease. If you take aspirin to prevent heart attack or stroke, talk with your doctor or health overnight caregiver. Do not take other medicines that contain aspirin, ibuprofen, or naproxen with this medicine. Side effects such as stomach upset, nausea, or ulcers may be more likely to occur. Many medicines available without a prescription should not be taken with this medicine. This medicine can cause ulcers and bleeding in the stomach and intestines at any time during treatment. Ulcers and bleeding can happen without warning symptoms and can cause . To reduce your risk, do not smoke cigarettes or drink alcohol while you are taking this medicine. You may get drowsy or dizzy. Do not drive, use machinery, or do anything that needs mental alertness until you know how this medicine affects you. Do not stand or sit up quickly, especially if you are an older patient. This reduces the risk of dizzy or fainting spells. This medicine can cause you to bleed more easily. Try to avoid damage to your teeth and gums when you brush or floss your teeth. You have been given the following additional information: Chest Wall Pain, Costochondritis Tramadol Hydrochloride Oral tablet Ibuprofen Oral tablet No driving or operating machinery while taking medication. (Electronically signed by Sedrick Sheppard MD 06/10/2016 19:21)
--- NOTE | 2016-06-10 19:21 | ED MED RECONCILIATION SUMMARY ---
Patient: KAMINI SUAREZ Medication Reconciliation Report [facility] VisitID: [id number] [address] [place] [address] 45y, F Registration Date/Time: 06/10/2016 Weight: 70.3 kg Height/Length: 63 in. BMI: 27.5 ALLERGIES: Compazine The patient's Home Medications are listed below: CONTINUE TAKING THE FOLLOWING MEDICATIONS: Amitriptyline HCl Oral 25 mg Orencia Subcutaneous PredniSONE Oral 5 mg, daily The source(s) of the original Home Medication information: patient The following Medications were given to the patient in the Emergency Department: Aspirin [PO] PO 325 mg, administered: 06/10/2016 4:55:00 PM The following Medications were prescribed to the patient: Motrin (available over the counter): take according to label instructions. -- Sedrick Sheppard MD Ultram 50 mg: take 1-2 orally every 6 hours as needed for pain. Dispense fifteen (15). No refills. Substitution is permissible. -- Sedrick Sheppard MD
--- NOTE | 2016-06-10 19:21 | ED MAR SUMMARY ---
..... Medication Administration Record [facility] [address] [place] [address] Patient: KAMINI SUAREZ Visit ID: [id number] 45y, F Weight: 70.3 kg Height/Length: 63 in BMI: 27.5 ALLERGIES: Compazine Given 16:55 06/10/2016 Rabia Carrillo R.N. Medication Administered: ASPIRIN [PO], Dose: 325 mg Tablets PO. Medication Ordered: Aspirin PO 325 mg (NOW).
== END 2016-06-10 18:40 | disposition home or self-care (01) ==
LOC: ED SRH 16:16
DX: R07.89 Other chest pain (principal); F17.210 Nicotine dependence, cigarettes, uncomplicated; Z88.8 Allergy status to other drugs, medicaments and biological substances
CPT/HCPCS: 90074; 90100; 90616; 91320; 91556; 92235; 92530; 92610; 94001; 94060; 95059

== ENCOUNTER 2016-08-11 20:44 | Emergency (ER) | payer OTHER ==
--- NOTE | 2016-08-11 22:00 | DIAGNOSTIC IMAGING REPORT ---
PROCEDURE: XR CHEST 2 VIEW INDICATION: SHORTNESS OF BREATH TECHNIQUE: Two views. COMPARISON: 06/10/2016 FINDINGS: The cardiomediastinal contour is stable, within normal limits. The central vasculature is not congested. The lungs are clear without focal consolidation, pleural effusion or pneumothorax. The visualized osseous structures are intact. IMPRESSION: 1. No evidence of acute cardiopulmonary disease. 2. Stable exam compared to prior study.
--- NOTE | 2016-08-11 22:18 | ED NURSING NOTES ---
Clinical Report - Nurses [facility] [address] [place] [address] 08/11/2016 20:44 [id number] Triage time 20:50 Aug 11 2016. Acuity: LEVEL 3. Chief Complaint: SHORTNESS OF BREATH and DIFFICULTY BREATHING and COUGH. SEPSIS SCREEN: Sepsis Screen: negative. Infection suspected/documented. Heart rate greater than 90. MAGNUS COMA SCORE: Magnus Coma Scale: 15- eyes open spontaneously (4); best verbal response- oriented x 4 (5); best motor response- obeys commands (6). --20:54 Shahida Stein 20:50 08/11/16. BP: 143/77. HR: 122. RR: 22. O2 saturation: 97% on room air. Temp: 98.9 F (oral). Pain level now: 10/12. --20:54 Shahida Stein. Weight: 72.5 kg stated. Height/Length: 63 inches Per Patient. BMI: 28.3. --20:53 Shahida Stein. Medications Orencia Subcutaneous. --20:51 Shahida Stein TiZANidine HCl Oral. --20:52 Shahida Stein Lorzone Oral. --20:52 Shahida Stein. Medication/allergy information source: the patient. --20:54 Shahida Stein. Allergies Compazine. --20:51 Shahida Stein. History Arrived by private vehicle. Historian: patient. Accompanied by family. Primary physician (Norma awan). Onset. (3 days). ( Patient reports that she has been sick with a non productive cough for three days. She reports that today she has not been able to stop coughing and that she began having difficulty breathing. She reports rib pain. She denies fever.). PAST MEDICAL HX: Immunizations: up-to-date. Last normal menstrual period- 12 years. SOCIAL HX: Light tobacco smoker (cigarette)- less than 1/2 a pack per day. No alcohol use or drug use. No infectious disease exposure. ABUSE ASSESSMENT: No report of abuse. FALL RISK ASSESSMENT: Fall risk assessment completed. No fall risk identified. NUTRITIONAL RISK ASSESSMENT: The nutritional risk assessment revealed no deficiencies. FUNCTIONAL ASSESSMENT: Functional assessment: no impairments noted. LEARNING NEEDS ASSESSMENT: The learning needs assessment revealed no barriers. SKIN INTEGRITY ASSESSMENT: Skin integrity risk assessment completed. No skin integrity risk identified. --20:54 Shahida Stein. PROBLEMS: Chest Wall Pain. Fibromyalgia. Arthritis. --20:52 Shahida Stein. ADDITIONAL SURGERIES: Hysterectomy. Oophorectomy. --20:52 Shahida Stein. Interventions ID band on patient. To treatment room. --20:54 Shahida Stein. PHYSICAL ASSESSMENT 20:55 08/11/16. Patient gowned. GENERAL / NEURO / PSYCH: Alert. Oriented X 4. Appears in no acute distress. HEENT: Mucous membranes are pink. RESPIRATORY: Mild respiratory distress. Respirations not labored. The patient can speak in full sentences. Breath sounds within normal limits. CVS: Cardiac rhythm: sinus tachycardia. SKIN: Skin is warm and dry. --20:55 Shahida Stein. NURSING PROGRESS NOTES Pulse oximeter and NIBP monitor placed on patient; monitor alarms on. Patient gowned. Warming measures: blanket applied. Reassurance given to the patient. Two patient identifiers checked. Call light placed in reach. Side rails up x 1. Bed placed in lowest position. Brakes of bed on. Patient ready for evaluation- chart flagged and ED physician notified. --20:56 Shahida Stein 21:17 08/11/2016 Prednisone PO Tablets 40 mg given. Allergies verified and confirmed 5 rights. --21:17 Shahida Stein 21:26 08/11/2016 Site #1 started via IV in the right antecubital space with an 20g angiocath, with aseptic technique and good blood return; one attempt. Blood drawn: rainbow set. Labeled in the presence of the patient and sent to the lab. Saline lock flushed with 10 mL saline. --21:31 Shahida Stein 21:31 08/11/2016 Started bag #1 1000 mL IV Fluids IV NS (Saline); at 1000 mL/hr over 1 hour(s) via site #1. Allergies verified and confirmed 5 rights. IV patency established. IV site checked: no pain, redness, or swelling. IV flushed thoroughly pre- and post-medication administration. --21:31 Shahida Stein Patient ID band checked for patient name and birthdate: patient confirmed. Blood samples drawn from the right antecubital space peripheral IV site by nurse ; labeled in presence of the patient and sent to lab: rainbow set. Line flushed with 10 mL normal saline post blood draw. --21:34 Shahida Stein 21:35 08/11/16. BP: 124/60. HR: 114. RR: 22. O2 saturation: 97% on room air. --21:36 Shahida Stein Patient transported to radiology by stretcher with tech. (:36 Aug 11 2016). --21:36 Shahida Stein Patient returned from radiology by stretcher with tech. (:39 Aug 11 2016). --21:39 Shahida Stein 22:39 08/11/2016 Site #1 removed upon discharge. Catheter intact. Bandaid applied. --22:44 Shahida Stein 22:44 08/11/2016 IV Fluids IV NS Discontinued: bag #1 completed upon discharge. Total amount infused: 1000 mL. IV patency established. IV site checked: no pain, redness, or swelling. IV flushed thoroughly. --22:44 Shahida Stein. DISPOSITION / DISCHARGE 22:44 08/11/16. Condition at departure: improved and stable. The goals identified in the patient's plan of care were met. No learning barriers present. Discharge instructions provided and reviewed with the patient. Reviewed warnings (Do not drive while on sedative medications). Reviewed medication(s) side effects, precautions, dosing and course information. Prescription(s) given to the patient. Reviewed need for increased fluid intake. Patient verbalized understanding. Written instructions provided in Mongolian. ( Follow up with your PCP in three days. Return if symptoms worsen. Take medications as directed and increase fluids to loosen secretions. Patient acknowledged discharge instructions and had no questions at this time.). The patient was discharged by the physician. She was discharged home and accompanied by family. She left the Emergency Department ambulatory and via private vehicle. Family member driving. FALL RISK ASSESSMENT: Fall risk assessment completed. No fall risk identified. --22:44 Shahida Stein 22:40 08/11/16. BP: 115/62. HR: 104. RR: 20. O2 saturation: 97% on room air. Temp: 98.9 F (oral). Pain level now: 10/12. --22:44 Shahida Stein. Locked/Released at 08/12/2016 9:18 by Ghazal Chery R.N.
--- NOTE | 2016-08-11 22:18 | ED CLINICAL REPORT ---
Clinical Report - Physicians/Mid Levels [facility] [address] [place] [address] 08/11/2016 20:44 Patient: KAMINI SUAREZ Time Seen: 20:55; initial patient contact. Arrived- By private vehicle. Historian- patient. HISTORY OF PRESENT ILLNESS Chief Complaint: DYSPNEA. This started about 3 days ago and is still present (worse since 5 hours ago). It was gradual in onset and has been waxing/waning. The dyspnea is described as moderate. The dyspnea is worsened by cough. No improvement of dyspnea with rest or sitting upright. The patient has had a cough. No sputum production, fever, sweating episodes, wheezing or chills. No dyspnea on exertion, chest pain or discomfort, calf pain or foot swelling. No palpitations. Similar symptoms previously: None. Recent medical care: Not recently seen/assessed. REVIEW OF SYSTEMS The patient has had a nasal discharge, sinus drainage and a sore throat. No skin rash. All systems otherwise negative, except as recorded above. PAST HISTORY Problems: Fibromyalgia. Arthritis. Surgeries: Hysterectomy. Oophorectomy. SOCIAL HISTORY Current every day smoker. No alcohol use or drug use. No recent travel. ADDITIONAL NOTES The nursing notes have been reviewed. PHYSICAL EXAM Vital Signs: 08/11/2016 21:35 BP: 124/60. HR: 114. RR: 22. O2 saturation: 97%. Have been reviewed. Blood pressure normal. Tachycardic. Tachypneic. Oxygen saturation normal. Appearance: Alert. No acute distress. Eyes: Eyes normal inspection. ENT: Pharynx normal. Neck: Normal inspection. No jugular venous distention. CVS: Tachycardia. Heart sounds normal. Rhythm normal. Respiratory: No respiratory distress. Breath sounds normal. Skin: Skin warm and dry. Normal skin color. No rash. Extremities: No calf tenderness. No lower extremity edema. Neuro: Oriented X 3. No motor deficit. LABS, X-RAYS, AND EKG Chest X-ray: No acute disease. Normal lung markings present. Normal heart size. Mediastinum normal. Great vessels normal. No infiltrate. Views: PA and lateral. Technique: good. The X-rays were independently viewed by me and interpreted contemporaneously by me. A comparison with prior films reveals that the findings are unchanged. Interpretation time: 22:04. Laboratory Tests: CBC w Diff: (JESSICA: 08/11/2016 21:30) ( [facility] 08/11/2016 21:46) Final results Test Result Flag Units (Reference) WHITE BLOOD COUNT 11.0 K/uL (4.5-11.5) RED BLOOD COUNT 4.60 M/uL (4.00-5.20) HEMOGLOBIN 12.6 gm/dL (12.0-16.0) HEMATOCRIT 39.0 % (36.0-46.0) MEAN CELL VOLUME 85 fL (80-100) MEAN CORPUSCULAR HGB 27 pg (26-34) MEAN CORPUSCULAR HGB CONC 32 g/dL (31-37) RED CELL DISTRIBUTION WIDTH 15.1 H % (11.6-14.8) PLATELET COUNT 416 H K/uL (150-400) NEUTROPHIL % 58.7 % (50-75) LYMPH % 30.4 % (25-40) MONO % 7.8 % (3-14) EOSINOPHIL % 2.5 % (0-4) BASOPHIL % 0.6 % (0-2) [id number]: (JESSICA: 08/11/2016 21:30) ( [facility] 08/11/2016 21:48) Final results Test Result Flag Units (Reference) D-DIMER QUANTITATIVE 0.42 ug/mLFEU (0.27-0.52) The primary value of this quantitative assay relates toits negative predictive value (i.e. exclusion) of pulmonaryembolism/deep vein thrombosis/DIC.Elevated levels of d-dimer may also occur with:, age, cancer, inflammation, liver disease,post-op, infection, hematoma, coronary disease, peripheralarteriopathy, bleeding disorders and thrombolytic treatment.Results should be correlated with other clinical andradiological data.Testing Methodology: Latex Immunoassay CMP: (JESSICA: 08/11/2016 21:30) ( [facility] 08/11/2016 22:01) Final results Test Result Flag Units (Reference) GLUCOSE 92 mg/dL (70-110) BUN 11 mg/dL (7-18) CREATININE 0.8 mg/dL (0.6-1.3) Estimated GFR >60 mL/min Estimated GFR- >60 mL/min Note: Persistent reduction over 3 months in eGFR<60 mL/min/1.73 m2 defines CKD. Patients with eGFR values>=60 mL/min/1.73 m2 may also have CKD if evidence ofpersistent proteinuria. Additional information may be foundat www.[email or web address].org. SODIUM 141 mmol/L (136-145) POTASSIUM 3.7 mmol/L (3.5-5.1) CHLORIDE 105 mmol/L (98-107) CARBON DIOXIDE 25 mmol/L (21-32) CALCIUM 8.6 mg/dL (8.5-10.1) TOTAL PROTEIN 7.9 g/dL (6.4-8.2) ALBUMIN 3.6 g/dL (3.3-5.0) BILIRUBIN, TOTAL 0.3 mg/dL (0.0-1.0) ALKALINE PHOSPHATASE 94 U/L (46-116) AST (SGOT) 26 U/L (15-37) ALT (SGPT) 39 U/L (12-78) . PROGRESS AND PROCEDURES Course of Care: Prednisone 40 mg PO given. Physical exam findings are improved. Symptoms better. Disposition: Discharged home in good and improved condition. Condition: good. CLINICAL IMPRESSION Acute viral rhinitis. INSTRUCTIONS Your Current Medications: CONTINUE TAKING THE FOLLOWING MEDICATIONS: Lorzone Oral. Orencia Subcutaneous. TiZANidine HCl Oral. Prescription Medications: Benzonatate 200 mg: take 1 orally every 8 hours as needed for cough. Dispense twenty (20). No refill. Prednisone 20 mg: take 2 orally every day for 4 days. Dispense sufficient quantity. No refills. Follow-up: Follow up with your doctor in about two days. Call for an appointment. Screening today revealed the patient's blood pressure to be in the pre-hypertensive range. The patient should follow up with a primary care provider for blood pressure management. (Electronically signed by Gustavo Suh Dr. 08/12/2016 4:29)
--- NOTE | 2016-08-11 22:18 | ED CLINICAL REPORT ---
Clinical Report - Physicians/Mid Levels [facility] [address] [place] [address] 08/11/2016 20:44 Patient: KAMINI SUAREZ Time Seen: 20:55; initial patient contact. Arrived- By private vehicle. Historian- patient. HISTORY OF PRESENT ILLNESS Chief Complaint: DYSPNEA. This started about 3 days ago and is still present (worse since 5 hours ago). It was gradual in onset and has been waxing/waning. The dyspnea is described as moderate. The dyspnea is worsened by cough. No improvement of dyspnea with rest or sitting upright. The patient has had a cough. No sputum production, fever, sweating episodes, wheezing or chills. No dyspnea on exertion, chest pain or discomfort, calf pain or foot swelling. No palpitations. Similar symptoms previously: None. Recent medical care: Not recently seen/assessed. REVIEW OF SYSTEMS The patient has had a nasal discharge, sinus drainage and a sore throat. No skin rash. All systems otherwise negative, except as recorded above. PAST HISTORY Problems: Fibromyalgia. Arthritis. Surgeries: Hysterectomy. Oophorectomy. SOCIAL HISTORY Current every day smoker. No alcohol use or drug use. No recent travel. ADDITIONAL NOTES The nursing notes have been reviewed. PHYSICAL EXAM Vital Signs: 08/11/2016 21:35 BP: 124/60. HR: 114. RR: 22. O2 saturation: 97%. Have been reviewed. Blood pressure normal. Tachycardic. Tachypneic. Oxygen saturation normal. Appearance: Alert. No acute distress. Eyes: Eyes normal inspection. ENT: Pharynx normal. Neck: Normal inspection. No jugular venous distention. CVS: Tachycardia. Heart sounds normal. Rhythm normal. Respiratory: No respiratory distress. Breath sounds normal. Skin: Skin warm and dry. Normal skin color. No rash. Extremities: No calf tenderness. No lower extremity edema. Neuro: Oriented X 3. No motor deficit. LABS, X-RAYS, AND EKG Chest X-ray: No acute disease. Normal lung markings present. Normal heart size. Mediastinum normal. Great vessels normal. No infiltrate. Views: PA and lateral. Technique: good. The X-rays were independently viewed by me and interpreted contemporaneously by me. A comparison with prior films reveals that the findings are unchanged. Interpretation time: 22:04. Laboratory Tests: CBC w Diff: (JESSICA: 08/11/2016 21:30) ( [facility] 08/11/2016 21:46) Final results Test Result Flag Units (Reference) WHITE BLOOD COUNT 11.0 K/uL (4.5-11.5) RED BLOOD COUNT 4.60 M/uL (4.00-5.20) HEMOGLOBIN 12.6 gm/dL (12.0-16.0) HEMATOCRIT 39.0 % (36.0-46.0) MEAN CELL VOLUME 85 fL (80-100) MEAN CORPUSCULAR HGB 27 pg (26-34) MEAN CORPUSCULAR HGB CONC 32 g/dL (31-37) RED CELL DISTRIBUTION WIDTH 15.1 H % (11.6-14.8) PLATELET COUNT 416 H K/uL (150-400) NEUTROPHIL % 58.7 % (50-75) LYMPH % 30.4 % (25-40) MONO % 7.8 % (3-14) EOSINOPHIL % 2.5 % (0-4) BASOPHIL % 0.6 % (0-2) [id number]: (JESSICA: 08/11/2016 21:30) ( [facility] 08/11/2016 21:48) Final results Test Result Flag Units (Reference) D-DIMER QUANTITATIVE 0.42 ug/mLFEU (0.27-0.52) The primary value of this quantitative assay relates toits negative predictive value (i.e. exclusion) of pulmonaryembolism/deep vein thrombosis/DIC.Elevated levels of d-dimer may also occur with:, age, cancer, inflammation, liver disease,post-op, infection, hematoma, coronary disease, peripheralarteriopathy, bleeding disorders and thrombolytic treatment.Results should be correlated with other clinical andradiological data.Testing Methodology: Latex Immunoassay CMP: (JSESICA: 08/11/2016 21:30) ( [facility] 08/11/2016 22:01) Final results Test Result Flag Units (Reference) GLUCOSE 92 mg/dL (70-110) BUN 11 mg/dL (7-18) CREATININE 0.8 mg/dL (0.6-1.3) Estimated GFR >60 mL/min Estimated GFR- >60 mL/min Note: Persistent reduction over 3 months in eGFR<60 mL/min/1.73 m2 defines CKD. Patients with eGFR values>=60 mL/min/1.73 m2 may also have CKD if evidence ofpersistent proteinuria. Additional information may be foundat www.[email or web address].org. SODIUM 141 mmol/L (136-145) POTASSIUM 3.7 mmol/L (3.5-5.1) CHLORIDE 105 mmol/L (98-107) CARBON DIOXIDE 25 mmol/L (21-32) CALCIUM 8.6 mg/dL (8.5-10.1) TOTAL PROTEIN 7.9 g/dL (6.4-8.2) ALBUMIN 3.6 g/dL (3.3-5.0) BILIRUBIN, TOTAL 0.3 mg/dL (0.0-1.0) ALKALINE PHOSPHATASE 94 U/L (46-116) AST (SGOT) 26 U/L (15-37) ALT (SGPT) 39 U/L (12-78) . PROGRESS AND PROCEDURES Course of Care: Prednisone 40 mg PO given. Physical exam findings are improved. Symptoms better. Disposition: Discharged home in good and improved condition. Condition: good. CLINICAL IMPRESSION Acute viral rhinitis. INSTRUCTIONS Your Current Medications: CONTINUE TAKING THE FOLLOWING MEDICATIONS: Lorzone Oral. Orencia Subcutaneous. TiZANidine HCl Oral. Prescription Medications: Benzonatate 200 mg: take 1 orally every 8 hours as needed for cough. Dispense twenty (20). No refill. Prednisone 20 mg: take 2 orally every day for 4 days. Dispense sufficient quantity. No refills. Follow-up: Follow up with your doctor in about two days. Call for an appointment. Screening today revealed the patient's blood pressure to be in the pre-hypertensive range. The patient should follow up with a primary care provider for blood pressure management. (Electronically signed by Gustavo Suh Dr. 08/12/2016 4:29)
--- NOTE | 2016-08-11 22:19 | ED ORDER SUMMARY ---
..... Patient: KAMINI SUAREZ OrderSheet [facility] VisitID: [id number] [place] [address] 45y, F Registration Date/Time: 08/11/2016 ORDER SHEET Weight: 72.5 kg (stated) Allergies: Compazine GENERAL ORDERS: Chest 2V Urgent (21:20 08/11/2016 Shweta Bryant) (21:38 RFay) CBC w Diff Urgent (21:21 08/11/2016 Shweta Bryant) (Ack 21:39 SRedmond) (22:44 HSoule) CMP Urgent (21:21 08/11/2016 Shewta Byrant) (Ack 21:39 SRedmond) (22:44 HSoule) D-Dimer Urgent (21:21 08/11/2016 Shweta Bryant) (Ack 21:39 SRedmond) (22:44 HSoule) MEDICATION ORDERS: Prednisone PO 40 mg (NOW) (21:06 08/11/2016 Shweta Bryant) (Ack 21:14 HSoule) (21:17 HSoule) IV FLUIDS: IV NS : initial bolus none -, then 1000 mL/hr for X1 (NOW) (21:21 08/11/2016 Shweta Bryant) (21:31 HSoule) ORDER SHEET NOTES: [Electronically signed by Gustavo Suh Dr. (04:29 08/12/2016)] [Electronically signed by Ghazal Chery R.N. (:18 08/12/2016)] [Electronically locked/signed by Ghazal Chery R.N. (:18 08/12/2016)]
--- NOTE | 2016-08-11 22:19 | ED ORDER SUMMARY ---
..... Patient: KAMINI SUAREZ OrderSheet [facility] VisitID: [id number] [place] [address] 45y, F Registration Date/Time: 08/11/2016 ORDER SHEET Weight: 72.5 kg (stated) Allergies: Compazine GENERAL ORDERS: Chest 2V Urgent (21:20 08/11/2016 Shweta Bryant) (21:38 RFay) CBC w Diff Urgent (21:21 08/11/2016 Shweta Bryant) (Ack 21:39 SRedmond) (22:44 HSoule) CMP Urgent (21:21 08/11/2016 Shweta Bryant) (Ack 21:39 SRedmond) (22:44 HSoule) D-Dimer Urgent (21:21 08/11/2016 Shweta Bryant) (Ack 21:39 SRedmond) (22:44 HSoule) MEDICATION ORDERS: Prednisone PO 40 mg (NOW) (21:06 08/11/2016 Shweta Bryant) (Ack 21:14 HSoule) (21:17 HSoule) IV FLUIDS: IV NS : initial bolus none -, then 1000 mL/hr for X1 (NOW) (21:21 08/11/2016 Shweta Bryant) (21:31 HSoule) ORDER SHEET NOTES: [Electronically signed by Gustavo Suh Dr. (04:29 08/12/2016)] [Electronically signed by Ghazal Chery R.N. (:18 08/12/2016)] [Electronically locked/signed by Ghazal Chery R.N. (:18 08/12/2016)]
--- NOTE | 2016-08-12 09:20 | ED DISCHARGE INSTRUCTIONS ---
Patient: KAMINI SUAREZ General Instructions [facility] VisitID: [id number] [place] [address] 45y, F Registration Date/Time: 08/11/2016 Acute viral rhinitis. INSTRUCTIONS Your Current Medications: CONTINUE TAKING THE FOLLOWING MEDICATIONS: Lorzone Oral. Orencia Subcutaneous. TiZANidine HCl Oral. Prescription Medications: Benzonatate 200 mg: take 1 orally every 8 hours as needed for cough. Dispense twenty (20). No refill. Prednisone 20 mg: take 2 orally every day for 4 days. Dispense sufficient quantity. No refills. Follow-up: Follow up with your doctor in about two days. Call for an appointment. Screening today revealed the patient's blood pressure to be in the pre-hypertensive range. The patient should follow up with a primary care provider for blood pressure management. ADDITIONAL INFORMATION Viral Respiratory Illness [Adult] You have an Upper Respiratory Illness (URI) caused by a virus. This illness is contagious during the first few days. It is spread through the air by coughing and sneezing or by direct contact (touching the sick person and then touching your own eyes, nose or mouth). Most viral illnesses go away within 7-10 days with rest and simple home remedies. Sometimes, the illness may last for several weeks. Antibiotics will not kill a virus and are generally not prescribed for this condition. Home Care: 1) If symptoms are severe, rest at home for the first 2-3 days. When you resume activity, don't let yourself get too tired. 2) Avoid being exposed to cigarette smoke (yours or others). 3) Tylenol (acetaminophen) or ibuprofen (Advil, Motrin) will help fever, muscle aching and headache. (Persons under 18 with fever should not take aspirin since this may cause liver damage.) 4) Your appetite may be poor, so a light diet is fine. Avoid dehydration by drinking 6-8 glasses of fluids per day (water, soft drinks, juices, tea, soup). Extra fluids will help loosen secretions in the nose and lungs. 5) Wtcz-ate-[id number] cold medicines will not shorten the length of time youre sick, but they may be helpful for the following symptoms: cough (Robitussin DM); sore throat (Chloraseptic lozenges or spray); nasal and sinus congestion (Actifed, Sudafed, Chlortrimeton). Follow Up with your doctor or as advised if you dont improve over the next week. Get Prompt Medical Attention if any of the following occur: -- Cough with lots of colored sputum (mucus) or blood in your sputum -- Chest pain, shortness of breath, wheezing or have trouble breathing -- Severe headache; face, neck or ear pain -- Fever over 100.4 F (38.0 C) for more than three days -- You cant swallow due to throat pain Benzonatate Oral capsule, liquid filled What is this medicine? BENZONATATE (ana ED na diego) is used to treat cough. How should I use this medicine? Take this medicine by mouth with a glass of water. Follow the directions on the prescription label. Avoid breaking, chewing, or sucking the capsule, as this can cause serious side effects. Take your medicine at regular intervals. Do not take your medicine more often than directed. Talk to your captain waiter/waitress regarding the use of this medicine in children. While this drug may be prescribed for children as young as 10 years old for selected conditions, precautions do apply. What side effects may I notice from receiving this medicine? Side effects that you should report to your doctor or health home care chaplain as soon as possible: allergic reactions like skin rash, itching or hives, swelling of the face, lips, or tongue breathing problems chest pain confusion or hallucinations irregular heartbeat numbness of mouth or throat seizures Side effects that usually do not require medical attention (report to your doctor or health home care chaplain if they continue or are bothersome): burning feeling in the eyes constipation headache nasal congestion stomach upset What may interact with this medicine? Do not take this medicine with any of the following medications: MAOIs like Carbex, Eldepryl, Marplan, Nardil, and Parnate What if I miss a dose? If you miss a dose, take it as soon as you can. If it is almost time for your next dose, take only that dose. Do not take double or extra doses. Where should I keep my medicine? Keep out of the reach of children. Store at room temperature between 15 and 30 degrees C (59 and 86 degrees F). Keep tightly closed. Protect from light and moisture. Throw away any unused medicine after the expiration date. What should I tell my health care provider before I take this medicine? They need to know if you have any of these conditions: kidney or liver disease an unusual or allergic reaction to benzonatate, anesthetics, other medicines, foods, dyes, or preservatives or trying to get breast-feeding What should I watch for while using this medicine? Tell your doctor if your symptoms do not improve or if they get worse. If you have a high fever, skin rash, or headache, see your health home care chaplain. You may get drowsy or dizzy. Do not drive, use machinery, or do anything that needs mental alertness until you know how this medicine affects you. Do not sit or stand up quickly, especially if you are an older patient. This reduces the risk of dizzy or fainting spells. You have been given the following additional information: Uri, Viral, No Abx (Adult) Benzonatate Oral capsule, liquid filled (Electronically signed by Gustavo Suh Dr. 08/12/2016 4:29)
--- NOTE | 2016-08-12 09:20 | ED MAR SUMMARY ---
..... Medication Administration Record [address] [place] [address] Patient: KAMINI SUAREZ Visit ID: [id number] 45y, F Weight: 72.5 kg Height/Length: 63 in BMI: 28.3 ALLERGIES: Compazine Given 21:17 08/11/2016 Shahida Stein, Medication Administered: PREDNISONE [PO], Dose: 40 mg Tablets PO. Medication Ordered: Prednisone PO 40 mg (NOW). Start 21:31 08/11/2016 Shahida Stein,, Stop 22:44 08/11/2016 Shahida Stein, Medication Administered: IV NS (SALINE), Dose: IV Fluids over 1 hour(s), Rate: 1000 mL/hr, Dispensed: 1000 mL bag, Site: #1 right AC. Medication Ordered: IV NS : initial bolus none -, then 1000 mL/hr for X1 (NOW).
--- NOTE | 2016-08-12 09:20 | ED MED RECONCILIATION SUMMARY ---
Patient: KAMINI SUAREZ Medication Reconciliation Report [facility] VisitID: [id number] [address] [place] [address] 45y, F Registration Date/Time: 08/11/2016 Weight: 72.5 kg Height/Length: 63 in. BMI: 28.3 ALLERGIES: Compazine The patient's Home Medications are listed below: CONTINUE TAKING THE FOLLOWING MEDICATIONS: Lorzone Oral Orencia Subcutaneous TiZANidine HCl Oral The source(s) of the original Home Medication information: patient The following Medications were given to the patient in the Emergency Department: Prednisone [PO] PO 40 mg, administered: 08/11/2016 9:17:00 PM IV NS IV Fluids bolus 0, then 1000 mL/hr, administered: 08/11/2016 9:31:00 PM The following Medications were prescribed to the patient: Benzonatate 200 mg: take 1 orally every 8 hours as needed for cough. Dispense twenty (20). No refill. -- Gustavo Suh Dr. Prednisone 20 mg: take 2 orally every day for 4 days. Dispense sufficient quantity. No refills. -- Gustavo Suh Dr.
--- NOTE | 2016-08-12 09:20 | ED DISCHARGE INSTRUCTIONS ---
Patient: KAMINI SUAREZ General Instructions [facility] VisitID: [id number] [place] [address] 45y, F Registration Date/Time: 08/11/2016 Acute viral rhinitis. INSTRUCTIONS Your Current Medications: CONTINUE TAKING THE FOLLOWING MEDICATIONS: Lorzone Oral. Orencia Subcutaneous. TiZANidine HCl Oral. Prescription Medications: Benzonatate 200 mg: take 1 orally every 8 hours as needed for cough. Dispense twenty (20). No refill. Prednisone 20 mg: take 2 orally every day for 4 days. Dispense sufficient quantity. No refills. Follow-up: Follow up with your doctor in about two days. Call for an appointment. Screening today revealed the patient's blood pressure to be in the pre-hypertensive range. The patient should follow up with a primary care provider for blood pressure management. ADDITIONAL INFORMATION Viral Respiratory Illness [Adult] You have an Upper Respiratory Illness (URI) caused by a virus. This illness is contagious during the first few days. It is spread through the air by coughing and sneezing or by direct contact (touching the sick person and then touching your own eyes, nose or mouth). Most viral illnesses go away within 7-10 days with rest and simple home remedies. Sometimes, the illness may last for several weeks. Antibiotics will not kill a virus and are generally not prescribed for this condition. Home Care: 1) If symptoms are severe, rest at home for the first 2-3 days. When you resume activity, don't let yourself get too tired. 2) Avoid being exposed to cigarette smoke (yours or others). 3) Tylenol (acetaminophen) or ibuprofen (Advil, Motrin) will help fever, muscle aching and headache. (Persons under 18 with fever should not take aspirin since this may cause liver damage.) 4) Your appetite may be poor, so a light diet is fine. Avoid dehydration by drinking 6-8 glasses of fluids per day (water, soft drinks, juices, tea, soup). Extra fluids will help loosen secretions in the nose and lungs. 5) Cktn-zuz-uldglgl cold medicines will not shorten the length of time youre sick, but they may be helpful for the following symptoms: cough (Robitussin DM); sore throat (Chloraseptic lozenges or spray); nasal and sinus congestion (Actifed, Sudafed, Chlortrimeton). Follow Up with your doctor or as advised if you dont improve over the next week. Get Prompt Medical Attention if any of the following occur: -- Cough with lots of colored sputum (mucus) or blood in your sputum -- Chest pain, shortness of breath, wheezing or have trouble breathing -- Severe headache; face, neck or ear pain -- Fever over 100.4 F (38.0 C) for more than three days -- You cant swallow due to throat pain Benzonatate Oral capsule, liquid filled What is this medicine? BENZONATATE (ana ED na diego) is used to treat cough. How should I use this medicine? Take this medicine by mouth with a glass of water. Follow the directions on the prescription label. Avoid breaking, chewing, or sucking the capsule, as this can cause serious side effects. Take your medicine at regular intervals. Do not take your medicine more often than directed. Talk to your after school counselor regarding the use of this medicine in children. While this drug may be prescribed for children as young as 10 years old for selected conditions, precautions do apply. What side effects may I notice from receiving this medicine? Side effects that you should report to your doctor or health adult daycare coordinator as soon as possible: allergic reactions like skin rash, itching or hives, swelling of the face, lips, or tongue breathing problems chest pain confusion or hallucinations irregular heartbeat numbness of mouth or throat seizures Side effects that usually do not require medical attention (report to your doctor or health adult daycare coordinator if they continue or are bothersome): burning feeling in the eyes constipation headache nasal congestion stomach upset What may interact with this medicine? Do not take this medicine with any of the following medications: MAOIs like Carbex, Eldepryl, Marplan, Nardil, and Parnate What if I miss a dose? If you miss a dose, take it as soon as you can. If it is almost time for your next dose, take only that dose. Do not take double or extra doses. Where should I keep my medicine? Keep out of the reach of children. Store at room temperature between 15 and 30 degrees C (59 and 86 degrees F). Keep tightly closed. Protect from light and moisture. Throw away any unused medicine after the expiration date. What should I tell my health care provider before I take this medicine? They need to know if you have any of these conditions: kidney or liver disease an unusual or allergic reaction to benzonatate, anesthetics, other medicines, foods, dyes, or preservatives or trying to get breast-feeding What should I watch for while using this medicine? Tell your doctor if your symptoms do not improve or if they get worse. If you have a high fever, skin rash, or headache, see your health adult daycare coordinator. You may get drowsy or dizzy. Do not drive, use machinery, or do anything that needs mental alertness until you know how this medicine affects you. Do not sit or stand up quickly, especially if you are an older patient. This reduces the risk of dizzy or fainting spells. You have been given the following additional information: Uri, Viral, No Abx (Adult) Benzonatate Oral capsule, liquid filled (Electronically signed by Gustavo Suh Dr. 08/12/2016 4:29)
--- NOTE | 2016-08-12 09:20 | ED MAR SUMMARY ---
..... Medication Administration Record [facility] [address] [place] [address] Patient: KAMINI SUAREZ Visit ID: [id number] 45y, F Weight: 72.5 kg Height/Length: 63 in BMI: 28.3 ALLERGIES: Compazine Given 21:17 08/11/2016 Shahida Stein, Medication Administered: PREDNISONE [PO], Dose: 40 mg Tablets PO. Medication Ordered: Prednisone PO 40 mg (NOW). Start 21:31 08/11/2016 Shahida Stein,, Stop 22:44 08/11/2016 Shahida Stein, Medication Administered: IV NS (SALINE), Dose: IV Fluids over 1 hour(s), Rate: 1000 mL/hr, Dispensed: 1000 mL bag, Site: #1 right AC. Medication Ordered: IV NS : initial bolus none -, then 1000 mL/hr for X1 (NOW).
--- NOTE | 2016-08-12 09:20 | ED MED RECONCILIATION SUMMARY ---
Patient: KAMINI SUAREZ Medication Reconciliation Report [facility] VisitID: [id number] [address] [place] [address] 45y, F Registration Date/Time: 08/11/2016 Weight: 72.5 kg Height/Length: 63 in. BMI: 28.3 ALLERGIES: Compazine The patient's Home Medications are listed below: CONTINUE TAKING THE FOLLOWING MEDICATIONS: Lorzone Oral Orencia Subcutaneous TiZANidine HCl Oral The source(s) of the original Home Medication information: patient The following Medications were given to the patient in the Emergency Department: Prednisone [PO] PO 40 mg, administered: 08/11/2016 9:17:00 PM IV NS IV Fluids bolus 0, then 1000 mL/hr, administered: 08/11/2016 9:31:00 PM The following Medications were prescribed to the patient: Benzonatate 200 mg: take 1 orally every 8 hours as needed for cough. Dispense twenty (20). No refill. -- Gustavo Suh Dr. Prednisone 20 mg: take 2 orally every day for 4 days. Dispense sufficient quantity. No refills. -- Gustavo Suh Dr.
== END 2016-08-11 22:45 | disposition home or self-care (01) ==
LOC: ED SRH 20:44
DX: J00 Acute nasopharyngitis [common cold] (principal); M19.90 Unspecified osteoarthritis, unspecified site; M79.7 Fibromyalgia; Z79.899 Other long term (current) drug therapy; F17.210 Nicotine dependence, cigarettes, uncomplicated; Z88.8 Allergy status to other drugs, medicaments and biological substances
CPT/HCPCS: 90100; 91556; 95059